=== PATIENT | male | born 1955 | race Caucasian/White ===

== ENCOUNTER 2021-10-07 22:47 | Inpatient (IN) | payer BC ==
[2021-10-07 23:14] LABS: #Eosinphils 0.1 thou/uL (0.0-0.7); #Lymphocytes 3.2 thou/uL (1.20-3.40); #Monocytes 0.8 thou/uL (0.11-0.59); #Neutrophils 7.4 thou/uL (1.40-6.50); %Basophils 0.1 % (0.0-1.0); %Eosinophils 0.9 % (0.0-10.0); %Lymphocytes 27.5 % (21.0-51.0); %Monocytes 7.2 % (0.0-10.0); %Neutrophils 64.2 % (42.0-75.0); Hemoglobin 15.6 g/dL (14.0-18.0); Mean Corpuscular HGB CONC 33.1 g/dL (32.0-36.0); Mean Corpuscular Hemoglobin 29.5 pg (27.0-31.0); Mean Corpuscular Volume 89.3 fL (78.0-98.0); Mean Platelet Volume 8.9 fL (7.4-10.4); Platelet Count 205 thou/uL (130-400); RBC Distribution Width 13.7 % (11.5-14.5); Red Blood Cell (RBC) Count 5.28 mill/uL (4.70-6.10); White Blood Cell (WBC) Count 11.5 thou/uL (4.8-10.8)
[2021-10-07 23:26] LABS: PTT 28.6 sec (22.9-36.1)
[2021-10-07 23:39] LABS: ALT (SGPT) 39 U/L (8-55); AST (SGOT) 23 U/L (5-34); Albumin 4.2 g/dL (3.4-4.8); Alkaline Phosphatase 93 U/L (40-110); Anion Gap 16 mmol/L (10-20); BUN (Urea Nitrogen) 15 mg/dL (8.4-25.7); Bilirubin, Total 0.4 mg/dL (0.2-1.2); Calc. Creatinine Clearance 0 mL/min (70-130); Calcium 9.8 mg/dL (7.8-10.44); Carbon Dioxide 26 mmol/L (23-31); Chloride 101 mmol/L (98-107); Globulin 3.3 g/dL (2.4-3.5); Glucose 158 mg/dL (80-115); Protein, Total 7.5 g/dL (5.8-8.1); Sodium 139 mmol/L (136-145)
[2021-10-08 00:26] LABS: Bilirubin Negative (Negative); Blood, Urine Negative (Negative); Clarity Clear (Clear); Glucose, Urine (Dipstick) Greater than 1000 mg/dL (Negative); Ketone, Urine Trace mg/dL (Negative); Leukocyte Negative Leu/uL (Negative); Nitrite Negative (Negative); Protein, Urine (Dipstick) Negative (Neg-Trace); Specific Gravity, Urine 1.042 (1.002-1.036)
[2021-10-08] MEDS ORDERED: HumaLOG 300 UNITS/3 ML VIAL SC PRN ×2 (01:46)
[2021-10-08] MEDS ORDERED: Dextrose 50% Abboject 50 ML SYRINGE SLOW IVP PRN (01:46)
[2021-10-08] MEDS ORDERED: hydrALAZINE 20 MG/ML VIAL SLOW IVP PRN (01:46)
[2021-10-08] MEDS ORDERED: Calcium Carbonate 500 MG ChewTAB PO PRN (01:46)
[2021-10-08] MEDS ORDERED: Acetaminophen 650 MG Suppository PR PRN (01:46)
[2021-10-08] MEDS ORDERED: Labetalol HCl 100 MG/20 ML VIAL SLOW IVP PRN (01:46)
[2021-10-08] MEDS ORDERED: Dextrose 5% in Water 1,000 ML IV PRN (01:46)
[2021-10-08] MEDS ORDERED: Clopidogrel Bisulfate 300 MG TAB PO SCH (02:30)
[2021-10-08 04:26] VITALS: BMI 44.9
[2021-10-08 05:52] LABS: #Eosinphils 0.1 thou/uL (0.0-0.7); #Lymphocytes 3.7 thou/uL (1.20-3.40); #Monocytes 0.9 thou/uL (0.11-0.59); #Neutrophils 5.6 thou/uL (1.40-6.50); %Basophils 0.3 % (0.0-1.0); %Eosinophils 1.4 % (0.0-10.0); %Lymphocytes 35.8 % (21.0-51.0); %Monocytes 8.4 % (0.0-10.0); Hemoglobin 14.3 g/dL (14.0-18.0); Mean Corpuscular HGB CONC 33.6 g/dL (32.0-36.0); Mean Corpuscular Hemoglobin 29.9 pg (27.0-31.0); Mean Platelet Volume 9.1 fL (7.4-10.4); Platelet Count 183 thou/uL (130-400); RBC Distribution Width 13.5 % (11.5-14.5); Red Blood Cell (RBC) Count 4.79 mill/uL (4.70-6.10); White Blood Cell (WBC) Count 10.3 thou/uL (4.8-10.8)
[2021-10-08 06:17] LABS: Anion Gap 12 mmol/L (10-20); BUN (Urea Nitrogen) 14 mg/dL (8.4-25.7); Calc. Creatinine Clearance 173 mL/min (70-130); Calcium 9.2 mg/dL (7.8-10.44); Carbon Dioxide 28 mmol/L (23-31); Cardiac Risk 4.2 (Less than 4.5); Chloride 102 mmol/L (98-107); Cholesterol 131 mg/dl (< 200 Desired); Glucose 125 mg/dL (80-115); HDL Cholesterol 31 mg/dL (>60 Neg Risk); LDL Cholesterol, Calculated 79 mg/dL; Potassium 3.2 mmol/L (3.5-5.1); Sodium 139 mmol/L (136-145); Triglycerides 104 mg/dL (Less than 150)
[2021-10-08] MEDS: Enoxaparin Sodium 40 MG/0.4 ML SYRINGE SC SCH (08:29)
[2021-10-08] MEDS: Aspirin 81 mg Enteric Coated Tablet PO SCH (08:30)
[2021-10-08] MEDS: Acetaminophen 325 MG TAB PO PRN ×2 (08:30→16:37)
[2021-10-08] MEDS ORDERED: Lorazepam 2 MG/ML VIAL SLOW IVP SCH (11:30)
[2021-10-08] MEDS ORDERED: ISOVUE-370 76%-LOCM 1 ML ONE (11:40)
[2021-10-08] MEDS ORDERED: Potassium Chloride 20 MEQ TAB PO SCH (11:45)
[2021-10-08] MEDS: Carvedilol 6.25 MG TAB PO SCH (16:38)
[2021-10-08 17:15] LABS: SARS-CoV-2 PCR by NAA Not Detected (NotDetected)
[2021-10-08] MEDS ORDERED: ALPRAZolam 0.5 MG TAB PO PRN (17:24)
[2021-10-08] MEDS: Atorvastatin Calcium 40 MG TAB PO SCH (21:06)
[2021-10-08] MEDS: Gabapentin 300 MG CAP PO SCH (21:07)
[2021-10-08] MEDS: Losartan 25 MG TAB PO SCH (21:07)
[2021-10-09] MEDS ORDERED: hydrALAZINE 20 MG/ML VIAL SLOW IVP PRN (01:21)
[2021-10-09] MEDS ORDERED: Labetalol HCl 100 MG/20 ML VIAL SLOW IVP PRN (01:24)
[2021-10-09] MEDS: Levothyroxine Sodium 75 MCG TAB PO SCH (05:03)
[2021-10-09 05:53] LABS: Anion Gap 12 mmol/L (10-20); BUN (Urea Nitrogen) 13 mg/dL (8.4-25.7); Calc. Creatinine Clearance 204 mL/min (70-130); Calcium 9.2 mg/dL (7.8-10.44); Carbon Dioxide 25 mmol/L (23-31); Chloride 105 mmol/L (98-107); Glucose 136 mg/dL (80-115); Potassium 3.8 mmol/L (3.5-5.1); Sodium 138 mmol/L (136-145)
[2021-10-09] MEDS ORDERED: Dulaglutide [Trulicity] 0.75 MG/0.5 ML Pen.Injctr SC SCH (09:00)
[2021-10-09] MEDS ORDERED: Clopidogrel Bisulfate 75 MG TAB PO SCH (09:00)
[2021-10-09] MEDS ORDERED: Potassium Chloride 10 MEQ TAB PO SCH (09:00)
[2021-10-09] MEDS: Enoxaparin Sodium 40 MG/0.4 ML SYRINGE SC SCH (09:53)
[2021-10-09] MEDS: Empagliflozin 25 MG TAB PO SCH (09:53)
[2021-10-09] MEDS: Carvedilol 6.25 MG TAB PO SCH ×2 (09:54→16:50)
[2021-10-09] MEDS: Aspirin 81 mg Enteric Coated Tablet PO SCH (09:54)
[2021-10-09] MEDS: Furosemide 40 MG TAB PO SCH (09:54)
[2021-10-09] MEDS: Atorvastatin Calcium 40 MG TAB PO SCH (20:15)
[2021-10-09] MEDS: Gabapentin 300 MG CAP PO SCH (20:15)
[2021-10-09] MEDS: Losartan 25 MG TAB PO SCH (20:16)
[2021-10-10] MEDS: Levothyroxine Sodium 75 MCG TAB PO SCH (05:28)
[2021-10-10] MEDS ORDERED: CEFAZOLIN 2 GM in Premix Bag 1 BAG IVPB SCH (06:00)
[2021-10-10 07:11] LABS: #Eosinphils 0.3 thou/uL (0.0-0.7); #Lymphocytes 3.5 thou/uL (1.20-3.40); #Monocytes 0.7 thou/uL (0.11-0.59); #Neutrophils 4.9 thou/uL (1.40-6.50); %Basophils 0.5 % (0.0-1.0); %Eosinophils 3.2 % (0.0-10.0); %Lymphocytes 37.2 % (21.0-51.0); %Neutrophils 52.1 % (42.0-75.0); Hemoglobin 14.7 g/dL (14.0-18.0); Mean Corpuscular HGB CONC 33.6 g/dL (32.0-36.0); Mean Corpuscular Volume 89.1 fL (78.0-98.0); Mean Platelet Volume 8.6 fL (7.4-10.4); Platelet Count 177 thou/uL (130-400); RBC Distribution Width 13.5 % (11.5-14.5); White Blood Cell (WBC) Count 9.4 thou/uL (4.8-10.8)
[2021-10-10] MEDS ORDERED: Fentanyl 100 MCG/2 ML VIAL ONE ×2 (07:21→11:01)
[2021-10-10] MEDS ORDERED: niCARdipine 25 MG/10 ML VIAL ONE (07:22)
[2021-10-10] MEDS ORDERED: Phenylephrine 10 MG/ML VIAL ONE (07:22)
[2021-10-10] MEDS ORDERED: Nitroglycerin 50 MG/250 ML BOT 250 ML ONE (07:22)
[2021-10-10 07:32] LABS: Anion Gap 13 mmol/L (10-20); BUN (Urea Nitrogen) 20 mg/dL (8.4-25.7); Calc. Creatinine Clearance 192 mL/min (70-130); Calcium 9.1 mg/dL (7.8-10.44); Carbon Dioxide 27 mmol/L (23-31); Chloride 103 mmol/L (98-107); Glucose 127 mg/dL (80-115); Potassium 3.6 mmol/L (3.5-5.1); Sodium 139 mmol/L (136-145)
[2021-10-10] MEDS ORDERED: Protamine Sulfate 50 MG/5 ML VIAL ONE (07:39)
[2021-10-10] MEDS ORDERED: Bupivacaine PF 0.5% 30 ML VIAL ONE (07:39)
[2021-10-10] MEDS ORDERED: EPINEPHrine 1 MG/ML AMP ONE (07:39)
[2021-10-10] MEDS ORDERED: Heparin 5,000 UNITS/ML VIAL ONE ×2 (07:39→09:02)
[2021-10-10] MEDS ORDERED: Ampicillin 2 GM VIAL ONE (07:54)
[2021-10-10] MEDS ORDERED: ceFAZolin 2 GM/DEX 5% 100 ML BAG ONE (07:55)
[2021-10-10] MEDS ORDERED: Midazolam HCl 2 mg/2 ml Vial ONE (07:56)
[2021-10-10] MEDS ORDERED: Lidocaine 1% PF 5 ML VIAL ONE (08:15)
[2021-10-10] MEDS ORDERED: Ondansetron PF 4 MG/2 ML Vial ONE (08:15)
[2021-10-10] MEDS ORDERED: PROPOFOL 200 MG/20 ML VIAL ONE (08:15)
[2021-10-10] MEDS ORDERED: PHENYLEPHRINE-NS 100 MCG/ML 10 ML SYRINGE ONE (08:15)
[2021-10-10] MEDS ORDERED: Glycopyrrolate 0.2 MG/ML 5 ML SYRINGE ONE (08:15)
[2021-10-10] MEDS ORDERED: Rocuronium Bromide 10 MG/ML (10ML VIAL) ONE (08:15)
[2021-10-10] MEDS ORDERED: hydrALAZINE 20 MG/ML VIAL SLOW IVP PRN (10:12)
[2021-10-10] MEDS ORDERED: Fentanyl 100 MCG/2 ML VIAL SLOW IVP PRN (10:12)
[2021-10-10] MEDS ORDERED: Phenylephrine 40 MG in Sodium Chloride 0.9% 250 ML 250 ML IVPB PRN (10:12)
[2021-10-10] MEDS ORDERED: Ondansetron PF 4 MG/2 ML Vial IVP PRN (10:12)
[2021-10-10] MEDS ORDERED: Acetaminophen 325 MG TAB PO PRN (10:12)
[2021-10-10] MEDS ORDERED: Lactated Ringer's 500 ML IV SCH (10:15)
[2021-10-10] MEDS ORDERED: Promethazine HCl 25 MG/ML VIAL IVPB PRN (10:32)
[2021-10-10] MEDS ORDERED: Promethazine HCl 25 MG/ML VIAL IM PRN (10:32)
[2021-10-10] MEDS ORDERED: Ondansetron HCl/PF 4 MG/2 ML Vial IVP PRN (10:32)
[2021-10-10] MEDS: Carvedilol 6.25 MG TAB PO SCH ×2 (12:03→17:08)
[2021-10-10] MEDS: Empagliflozin 25 MG TAB PO SCH (12:04)
[2021-10-10] MEDS: Aspirin 81 mg Enteric Coated Tablet PO SCH (12:04)
[2021-10-10] MEDS: Furosemide 40 MG TAB PO SCH (12:04)
[2021-10-10] MEDS: HYDROcodone/Acetaminophen 5/325 mg Tablet PO PRN ×3 (13:55→21:22)
[2021-10-10] MEDS ORDERED: ceFAZolin Sodium (SDC) 2 GM in Premix Bag 1 BAG IVPB SCH (14:00)
[2021-10-10] MEDS: Insulin Regular 300 UNITS/3 ML VIAL SC PRN (17:06)
[2021-10-10] MEDS: Atorvastatin Calcium 40 MG TAB PO SCH (21:23)
[2021-10-10] MEDS: Gabapentin 300 MG CAP PO SCH (21:23)
[2021-10-10] MEDS: Losartan 25 MG TAB PO SCH (21:29)
[2021-10-10] MEDS: ceFAZolin Sodium/D5W 2 GM in Premix Bag 1 BAG IVPB SCH (22:59)
[2021-10-11] MEDS: HYDROcodone/Acetaminophen 5/325 mg Tablet PO PRN (05:31)
[2021-10-11] MEDS: Levothyroxine Sodium 75 MCG TAB PO SCH (05:31)
[2021-10-11] MEDS: ceFAZolin Sodium/D5W 2 GM in Premix Bag 1 BAG IVPB SCH (05:32)
[2021-10-11] MEDS: Insulin Regular 300 UNITS/3 ML VIAL SC PRN ×2 (06:42→12:12)
[2021-10-11 07:26] LABS: Hemoglobin 14.5 g/dL (14.0-18.0)
[2021-10-11] MEDS: Carvedilol 6.25 MG TAB PO SCH (08:15)
[2021-10-11] MEDS: Furosemide 40 MG TAB PO SCH (08:16)
[2021-10-11] MEDS: Empagliflozin 25 MG TAB PO SCH (08:16)
[2021-10-11] MEDS: Aspirin 81 mg Enteric Coated Tablet PO SCH (08:16)
[2021-10-11] MEDS ORDERED: FLU VACC QS2021-22(6MOS UP)/PF 60 MCG/0.5 ML SYRINGE IM ONE (09:00)
[2021-10-11 09:15] VITALS: TEMP 98
[2021-10-11 14:16] VITALS: BP 180/87
== END 2021-10-11 16:25 | disposition home health service (06) | DRG 38 ==
LOC: ERS 22:47 → NEURO 10-08 01:11 → OBSVTOIN 10-09 16:07 → CCU 10-10 08:59
PROVIDERS: ADMIT Emergency Medicine; ATTEND Emergency Medicine
PROC: 03CL0ZZ Extirpation of Matter from Left Internal Carotid Artery, Open Approach (ICD-10-PCS; principal; 2021-10-10)
PROC: 03UL0KZ Supplement Left Internal Carotid Artery with Nonautologous Tissue Substitute, Open Approach (ICD-10-PCS; 2021-10-10)
DX: I63.032 Cerebral infarction due to thrombosis of left carotid artery (principal); Z68.42 Body mass index [BMI] 45.0-49.9, adult; G81.91 Hemiplegia, unspecified affecting right dominant side; I25.10 Atherosclerotic heart disease of native coronary artery without angina pectoris; E11.9 Type 2 diabetes mellitus without complications; E78.5 Hyperlipidemia, unspecified; F32.A Depression, unspecified; K42.9 Umbilical hernia without obstruction or gangrene; I10 Essential (primary) hypertension; E66.01 Morbid (severe) obesity due to excess calories; E78.00 Pure hypercholesterolemia, unspecified; R47.81 Slurred speech; Z20.822 Contact with and (suspected) exposure to COVID-19; Z79.899 Other long term (current) drug therapy; Z95.1 Presence of aortocoronary bypass graft; I25.2 Old myocardial infarction
CPT/HCPCS: 36415; 36416; 70450; 70496; 70498; 80048; 80053; 80061; 81003; 83036; 84443; 84484; 85014; 85018; 85025; 85610; 85730; 93005; 93306; 96372; 96374; C1768; G0378; J0171; J0290; J0690; J1642; J1644; J1650; J1815; J2060; J2250; J2370; J2405; J2704; J2720; J3010; Q9966; S0020; U0003; U0005